=== PATIENT | male | born 1980 | race Caucasian/White ===

== ENCOUNTER → 2018-10-09 17:31 | Outpatient (CLI) | payer OTHER ==
[2018-10-09 19:52] LABS: T4 THYROXIN - FREE 1.01 ng/dL (0.76-1.46); THYROID STIMULATING HORMONE 1.25 uIU/mL (0.36-3.74)
== END | disposition home or self-care (01) ==
LOC: D.LABREF 17:31
PROVIDERS: Internal Medicine Interventional Cardiology
DX: R00.2 Palpitations (principal)

== ENCOUNTER → 2018-11-12 08:14 | Outpatient (CLI) | payer OTHER ==
--- NOTE | ~2018-11-12 | EC ---
PATIENT:BALBIR GONZALEZ DATE OF SERVICE: 11/12/18 SEX: M MEDICAL RECORD: [id number] DATE OF : [birth year] [facility] AGE [facility] PAT[facility]: 38 ADMISSION DATE: 11/12/18 REFERRING PHYSICIAN: INTERPRETING PHYSICIAN: JANEE JONES MD ECHOCARDIOGRAM REPORT ECHO CHARGES 4 ECHO COMPLETE Date: 11/12/18 CLINICAL DIAGNOSIS: HEART MURMUR, PALPITATIONS ECHOCARDIOGRAPHIC MEASUREMENTS (adult normal given) AC root (d.<3.7cm) 4.0 cm LV Septum d (<1.2 cm> 1.3 cm Valve Excursion 2.2 cm LV Septum (systole) 1.5 cm Left Atria (s.<4.0cm> 3.7 cm LVPW d(<1.2cm) 1.5 cm RV (d.<2.3cm) 4.3 cm LVPW (sytole) 1.6 cm LV diastole(<5.6CM) 4.9 cm MV E-F(>70mm/sec) cm LV systole 3.5 cm LVOT Diameter 2.1 cm MV exc.(>10mm) 2.4 cm Est.ejection fraction (50-75%) % DOPPLER: LVIT cm/sec A 165 cm/sec E 109 cm/sec LA cm/sec RVSP 17 mmHg LVOT 88 cm/sec AOP1/2T 580 m/s Asc. Ao 108 cm/sec RVOT 70 cm/sec RA cm/sec PA 141 cm/sec AV Gradient Peak 4.63 mmHg AV Mean 2.21 mmHg AV Area 3.1 cm MV Gradient Peak 5.31 mmHg MV Mean 1.71 mmHg MV Area cm COMMENTS: Environmental Field Services Technician: Philip HAMEED Grain Mixer: 1 Dr. Jones TAPE# PACS Pericardial Effusion N DATE OF SERVICE: 11/12/2018 PROCEDURE: Echocardiogram. FINDINGS: 1. Left ventricular chamber size is within normal limits. Left ventricular systolic function is normal. Overall ejection fraction estimated at 60%. 2. Left atrium, right atrium, and right ventricular chamber sizes are within normal limits. 3. Valvular structures: The mitral valve demonstrates mild prolapse of the ECHOCARDIOGRAM REPORT [id number] BALBIR GONZALEZ posterior leaflet. Remaining valvular structures are normal structure and motion. 4. Doppler interrogation reveals mild aortic insufficiency, mild mitral regurgitation, no other valvular insufficiency or stenosis and pulmonary systolic pressure is normal estimated at 17 mmHg. 5. No evidence of pericardial effusion or left ventricular thrombus. TRANSINT:[id number] Voice Confirmation ID: [id number] DOCUMENT ID: [id number] JANEE JONES MD CC: [id number] DICTATION DATE: 11/19/18 1021 WASHING TUB OPERATOR: 11/19/18 1122 DEP CLI 11/12/18 [facility] [address] [id number]
== END | disposition home or self-care (01) ==
LOC: D.HCCARDIO 10-22 08:30
PROVIDERS: ATTEND Internal Medicine Cardiovascular Disease
DX: R06.02 Shortness of breath (principal); R01.1 Cardiac murmur, unspecified